=== PATIENT | male | born 1995 | race African-American/Black ===

== ENCOUNTER 2017-04-01 13:43 | Emergency (ER) | payer BC ==
[~2017-04-01] VITALS: Ht 172.7 cm; Wt 87.5 kg
[2017-04-01 13:48] VITALS: TEMP 36.8; Ht 172.7 cm; Wt 87.5 kg
--- NOTE | 2017-04-01 14:39 | EMERGENCY ROOM VISIT NOTE ---
History Report prepared by Cristofer: Scott Kern Under the Supervision of: Dr. Marv Tiwari M.D. First contact with patient: 14:08 Chief Complaint: TESTICULAR PAIN Stated Complaint: EXTREME TESTICULAR PAIN,SWELLING,LOWER BACK PAIN History of Present Illness The patient is a 22 year old male who presents to the Emergency Room with complaints of persistent and intermittent bilateral testicular "discomfort" that he has been experiencing for the past couple of months. The patient describes the pain as a sudden "sharp" sensation, and rates the discomfort as a 10/10 in severity. He notes that he sometimes feels the pain radiate into his lower back. He also noticed that there is some redness/irritation on the scrotum itself. The patient has a history of testicular torsion and notes that the intermittent sharp pains feel like that previous episode. However, the torsion pain was constant. This pain spontaneously resolves after a few seconds. The patient commonly wears tight boxer briefs. He did mention one episode yesterday where he felt like his scrotum was "on fire." He denies any traumatic episodes that could have caused the pain, and denies any associated vomiting. Source of History: patient Onset: Couple of months [employer] Position: other () Symptom Intensity: 10/10 Quality: sharp Timing: intermittent, other (Persistent) Associated Symptoms: + rash (Notes some irritation on the scrotum), No vomiting Review of Systems See HPI for pertinent positives & negatives. A total of 10 systems reviewed and were otherwise negative. Past Medical & Surgical Medical Problems: (1) Testicular torsion Family History Hypertension Social History Smoking Status: Never Smoker Marital Status: in relationship Housing Status: lives with roommate Occupation Status: employed Current/Historical Medications Scheduled Doxycycline Hyclate (Vibramycin), 100 MG PO BID Allergies Coded Allergies: No Known Allergies (Unverified , 04/01/17) Physical Exam Vital Signs Date Time Temp Pulse Resp B/P (MAP) Pulse Ox O2 Delivery O2 Flow Rate FiO2 04/01/17 16:54 71 16 139/78 98 04/01/17 13:48 36.8 68 18 156/74 98 Room Air Physical Exam GENERAL: Patient is in no acute distress. HEENT: No acute trauma, normocephalic atraumatic, mucous membranes moist, no nasal congestion, no scleral icterus. NECK: No stridor, no adenopathy, no meningismus, trachea is midline. LUNGS: Clear to auscultation bilaterally, no wheeze, no rhonchi, breath sounds equal. HEART: Without murmurs gallops or rubs, regular rate and rhythm. ABDOMEN: Soft, nontender, bowel sounds positive, no hernias, no peritonitis. EXTREMITIES: No cyanosis or edema, full range of motion of all the joints without pain or difficulty, no signs for acute trauma. GROIN: Normal circumcised genitalia. No scrotal cellulitis, no penile discharge. There is no hernia with straining. Testes are normal size and nontender. The right epididymis seems mildly tender and slightly full. NEUROLOGIC: Oriented x 3, no acute motor or sensory deficits, no focal weakness. SKIN: No rash, no jaundice, no diaphoresis. Medical Decision & Procedures ER Provider Diagnostic Interpretation: Radiology results as stated below per my review and radiologist interpretation: (TESTICULAR) SCROTUM-CONT CLINICAL HISTORY: 22 years-old Male presenting with testicle pain, mostly right, h/o torsion. TECHNIQUE: Real-time grayscale and color and spectral Doppler ultrasound imaging of the scrotum was performed. COMPARISON: None. FINDINGS: Right testis: Normal echogenicity and echotexture. Testis measures 2.8 x 4.8 x 2.5 cm. Normal color Doppler flow and arterial and venous waveforms in the testicular parenchyma. Epididymal head normal. 7 mm cystic structure adjacent to the testicle possibly within the tunica albuginea. No hydrocele. No varicocele. Left testis: Normal echogenicity and echotexture. Testis measures 3.1 x 4.1 x 2.1 cm. Normal color Doppler flow and arterial and venous waveforms in the testicular parenchyma. Epididymal head normal. 10 mm anechoic cystic structure adjacent to the epididymal head, possibly epididymal head cyst, spermatocele, or loculated hydrocele. No varicocele. Symmetric perfusion of the testes. IMPRESSION: 1. No evidence of testicular torsion. No convincing evidence of epididymitis-orchitis. 2. 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 Electronically signed by: Zack Hogan M.D. 04/01/2017 3:56 PM Dictated Date/Time: 04/01/2017 3:52 PM Laboratory Results Test 04/01/17 14:25 Urine Color YELLOW Urine Appearance CLEAR (CLEAR) Urine pH 6.5 (4.5-7.5) Urine Specific [place] 1.022 (1.000-1.030) Urine Protein NEG (NEG) Urine Glucose (UA) NEG (NEG) Urine Ketones NEG (NEG) Urine Occult Blood NEG (NEG) Urine Nitrite NEG (NEG) Urine Bilirubin NEG (NEG) Urine Urobilinogen NEG (NEG) Urine Leukocyte Esterase NEG (NEG) Laboratory results reviewed by me. Medications Administered Medications (Trade) Dose Ordered Sig/Mireya Route Start Time Stop Time Status Last Admin Dose Admin Ceftriaxone Sodium (Rocephin Im) 500 mg NOW ONCE IM 04/01/17 16:30 04/01/17 16:31 DC 04/01/17 16:47 500 MG Azithromycin (Zithromax Tab) 1,000 mg NOW ONCE PO 04/01/17 16:30 04/01/17 16:31 DC 04/01/17 16:43 1,000 MG ED Course 1411: The patient was evaluated in room A12. A complete history and physical exam was performed. 1614: Reevaluated the patient. Discussed results and discharge instructions: He verbalized understanding and agreement. The patient is ready for discharge. 1630: Ordered Zithromax 1000 mg PO, Rocephin 500 mg IM. Medical Decision Differential Diagnosis includes; Epididymitis, hydrocele, testicular mass, testicular torsion, UTI, musculoskeletal pain, and hernia. The patient presents with testicular pain which has been coming and going for some time. He has a history of testicular torsion and surgery to correct. On exam, the right epididymis did seem somewhat full and tender, left was nontender. He did not have any evidence for hernia or scrotal cellulitis. Urinalysis does not show hematuria or infection. Testicular ultrasound shows good flow to both testicles. There was a cyst on the right noted. No evidence for testicular mass. The patient may have epididymitis. I think it would be reasonable to treat with antibiotics. He was given IM ceftriaxone and oral Zithromax. He will be discharged on doxycycline for 10 days. Supportive underwear, Motrin or Tylenol , urologic follow-up was suggested. If worsening, he can return. Medication Reconcilliation Current Medication List: was personally reviewed by me Blood Pressure Screening Patient's blood pressure: Elevated blood pressure Blood pressure disposition: Elevated BP felt to be situational Impression Primary Impression: Testicle pain Additional Impression: Epididymitis Scribe Attestation The scribe's documentation has been prepared under my direction and personally reviewed by me in its entirety. I confirm that the note above accurately reflects all work, treatment, procedures, and medical decision making performed by me. Departure Information Dispostion Home / Self-Care Prescriptions Doxycycline Hyclate (VIBRAMYCIN) 100 Mg Cap 100 MG PO BID for 10 Days, #20 CAP Prov: Marv Tiwari M.D. 04/01/17 Referrals No Doctor, Assigned (PCP) Forms HOME CARE DOCUMENTATION FORM, IMPORTANT VISIT INFORMATION, WORK / SCHOOL INSTRUCTIONS Patient Instructions My [facility] Additional Instructions doxycycline 2x per day for 10 days supportive underwear motrin and or tylenol for pain return for worsening symptoms call and set up urology appt--call sunday Problem Qualifiers
--- NOTE | 2017-04-01 15:58 | DIAGNOSTIC IMAGING REPORT ---
(TESTICULAR) SCROTUM-CONT CLINICAL HISTORY: 22 years-old Male presenting with testicle pain, mostly right, h/o torsion. TECHNIQUE: Real-time grayscale and color and spectral Doppler ultrasound imaging of the scrotum was performed. COMPARISON: None. FINDINGS: Right testis: Normal echogenicity and echotexture. Testis measures 2.8 x 4.8 x 2.5 cm. Normal color Doppler flow and arterial and venous waveforms in the testicular parenchyma. Epididymal head normal. 7 mm cystic structure adjacent to the testicle possibly within the tunica albuginea. No hydrocele. No varicocele. Left testis: Normal echogenicity and echotexture. Testis measures 3.1 x 4.1 x 2.1 cm. Normal color Doppler flow and arterial and venous waveforms in the testicular parenchyma. Epididymal head normal. 10 mm anechoic cystic structure adjacent to the epididymal head, possibly epididymal head cyst, spermatocele, or loculated hydrocele. No varicocele. Symmetric perfusion of the testes. IMPRESSION: 1. No evidence of testicular torsion. No convincing evidence of epididymitis-orchitis. 2. 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 Electronically signed by: Zack Hogan M.D. 04/01/2017 3:56 PM Dictated Date/Time: 04/01/2017 3:52 PM
[2017-04-01] MEDS ORDERED: DOXY100C PO (16:21)
[2017-04-01] MEDS ORDERED: CEFTRIAXONE SOD 350MG/ML 1 GM VIAL IM ONE (16:30)
[2017-04-01] MEDS ORDERED: AZITHROMYCIN 250 MG TAB PO ONE (16:30)
[2017-04-01 16:54] VITALS: BP 139/78; PULSE 71; O2SAT 98
== END 2017-04-01 16:50 | disposition home or self-care (01) ==
LOC: C.EDB 13:46 → C.EDA 16:50
DX: N50.811 Right testicular pain (principal); N50.812 Left testicular pain; N45.1 Epididymitis; Z98.890 Other specified postprocedural states; Z82.49 Family history of ischemic heart disease and other diseases of the circulatory system